=== PATIENT | male | born 1960 | race Caucasian/White ===

== ENCOUNTER 2016-08-12 15:16 | Emergency (ER) | payer BC ==
[~2016-08-12] VITALS: Ht 190.5 cm; Wt 111.1 kg
--- NOTE | 2016-08-12 15:37 | ED Lower Extremity ---
General Stated Complaint: LEFT FOOT INJURY Source: patient Exam Limitations: no limitations History of Present Illness Time seen by provider: 15:36 Initial Comments To ER with left foot pain after an injury. [place] piece of heavy equipment from a grain elevator struck his foot. He was wearing rubber boots at the time. Onset: just prior to arrival Severity: moderate Method of Injury: direct blow Modifying Factors: Worse With Movement Allergies and Home Medications Allergies Coded Allergies: No Known Drug Allergies (Unverified , 08/12/16) Home Medications Lisinopril 10 Mg Tablet Unknown Dose PO DAILY (Reported) Nebivolol HCl 10 Mg Tab Unknown Dose PO DAILY (Reported) Constitutional: see HPI EENTM: see HPI Respiratory: no symptoms reported Cardiovascular: no symptoms reported Genitourinary: no symptoms reported Musculoskeletal: see HPI Skin: no symptoms reported Psychiatric/Neurological: No Symptoms Reported Past Mdelghc-Yreprd-Lcgedi Hx Patient Social History Recent Foreign Travel: No Contact w/Someone Who Travel: No Physical Exam Vital Signs Vital Sign - Last 12Hours 08/12/16 15:30 Temp 97.9 Pulse 67 Resp 18 B/P 164/108 Pulse Ox 95 Capillary Refill : General Appearance: WD/WN no apparent distress HEENT: PERRL/EOMI normal ENT inspection Neck: non-tender full range of motion Respiratory: no respiratory distress no accessory muscle use Hips: bilateral hip non-tender, bilateral hip normal inspection, bilateral hip normal range of motion Legs: bilateral leg non-tender, bilateral leg normal inspection, bilateral leg normal range of motion Knees: bilateral knee non-tender, bilateral knee normal inspection, bilateral knee normal range of motion Ankles: left ankle soft tissue tenderness, left ankle swelling Feet: left foot ecchymosis, left foot pain, left foot soft tissue tenderness, left foot swelling, left foot other (dorsalis pedis pulse is +2 and the capillary refill is less than 3 seconds) Neurologic/Psychiatric: alert normal mood/affect oriented x 3 Skin: normal color warm/dry Progress/Results/Core Measures Results/Orders My Orders Orders-CHRIS GOLDEN APRN Hydrocodone/Apap 5/325 Tablet (Lortab 5 (08/12/16 15:45) Foot, Left, 3 Views (08/12/16 15:35) Ankle, Left, 3 Views (08/12/16 15:35) Medications Given in ED Current Medications Medications Dose Ordered Sig/Taylor Route Start Time Stop Time Status Last Admin Dose Admin Acetaminophen/ Hydrocodone Bitart 1 tab ONCE ONCE PO 08/12/16 15:45 08/12/16 15:46 DC 08/12/16 15:50 1 TAB Vital Signs/I&O Vital Sign - Last 12Hours 08/12/16 15:30 Temp 97.9 Pulse 67 Resp 18 B/P 164/108 Pulse Ox 95 Departure Communication Progress Notes Discussed case with Dr. Arzate. Patient will be placed in a posterior short leg splint using 4 inch Ortho-Glass and follow-up next week. There are no open wounds to qualify this as an open fracture Impression Impression: Primary Impression: Foot fracture, left Qualified Code: S92.902A - Unspecified fracture of left foot, initial encounter for closed fracture Disposition: HOME, SELF-CARE Condition: Stable Departure-Patient Inst. Decision time for Depature: 16:28 Referrals: GREG ARZATE MD, WILLIAM J DO (PCP/Family) Primary Care Physician Patient Instructions: Foot Drop, Foot Fracture (DC) Add. Discharge Instructions: 1. Return to ER for any concerns 2. Call Dr. Arzate's office tomorrow morning or an orthopedist of your choosing to make an appointment for follow-up preferably towards the middle or end of next week 3. Leave the splint on at all times until you're seen by orthopedics 4. Pain medication as directed 5. Keep this foot elevated as much as possible for the initial 48-72 hours Scripts Hydrocodone/Acetaminophen (Hooper 5-325 Tablet)1 Each Tablet1 Each PO Q4H PRN PAIN #30 TAB Prov:CHRIS GOLDEN POT HOLDER BINDER 08/12/16 CHRIS GOLDEN POT HOLDER BINDER Aug 12, 2016 15:37
[2016-08-12] MEDS ORDERED: HYDROcodone/APAP 5 MG/325 MG (LORTAB) TAB PO ONE (15:45)
[2016-08-12] MEDS ORDERED: NFNEB10T PO (15:58)
[2016-08-12] MEDS ORDERED: LISI10TA2 PO (15:58)
--- NOTE | 2016-08-12 16:25 | Diagnostic Imaging Report ---
INDICATION: Injury to left foot. EXAMINATION: AP, oblique and lateral views of the left foot were obtained. FINDINGS: There are acute fractures of the distal aspects of the second, third and fourth metatarsals, with lateral displacement of the distal fragment relative to the proximal fragments. There appears to be a partial subluxation of the fifth MTP joint. IMPRESSION: Acute fractures of the second, third and fourth metatarsals, distally, with lateral displacement of the distal fragments. There appears to be partial subluxation of the fifth MTP joint. Dictated by: Dictated on workstation # [id number]
--- NOTE | 2016-08-12 16:28 | Diagnostic Imaging Report ---
INDICATION: Pain status post injury. Bruising. COMPARISON: None. FINDINGS: Three views of the left ankle were obtained. There is no acute fracture or dislocation. No focal osseous lesions are seen. The surrounding soft tissue structures are unremarkable. There are no radiopaque foreign bodies. IMPRESSION: 1. No acute fracture or dislocation in the left ankle. Dictated by: Dictated on workstation # [id number]
[2016-08-12] MEDS ORDERED: HYDR-757 PO (16:30)
[2016-08-12 16:45] VITALS: BP 156/108
== END 2016-08-12 16:45 | disposition home or self-care (01) ==
LOC: EDUNIT# 15:16 → ER 15:17
DX: S92.332A Displaced fracture of third metatarsal bone, left foot, initial encounter for closed fracture (principal); S92.342A Displaced fracture of fourth metatarsal bone, left foot, initial encounter for closed fracture; S92.322A Displaced fracture of second metatarsal bone, left foot, initial encounter for closed fracture; W30.9XXA Contact with unspecified agricultural machinery, initial encounter; Y92.79 Other farm location as the place of occurrence of the external cause; Y99.8 Other external cause status
CPT/HCPCS: 28475; 29515; 73610; 73630

== ENCOUNTER → 2016-10-11 | Outpatient (CLI) | payer BC ==
[~2016-10-11] MED LIST: HYDR-757 PO; LISI10TA2 PO; NFNEB10T PO
--- NOTE | 2016-10-11 13:53 | Diagnostic Imaging Report ---
INDICATION: Injury to left orbital region. EXAMINATION: Five views of the orbits are obtained. FINDINGS: No fracture or acute bony abnormality is seen. The paranasal sinuses are well aerated. There is no radiopaque foreign body. IMPRESSION: Negative orbits. Dictated by: Dictated on workstation # [id number]
== END ==
LOC: RAD 10:01
PROVIDERS: ATTEND Nurse Practitioner Family
DX: S05.92XA Unspecified injury of left eye and orbit, initial encounter (principal); X58.XXXA Exposure to other specified factors, initial encounter; Y92.019 Unspecified place in single-family (private) house as the place of occurrence of the external cause; Y99.8 Other external cause status
CPT/HCPCS: 70200

== ENCOUNTER → 2017-08-17 | Outpatient (CLI) | payer BC ==
--- NOTE | 2017-08-17 10:25 | Diagnostic Imaging Report ---
INDICATION: Hypertension. TECHNIQUE: Multiple Real-time grayscale images were obtained over the abdomen in various projections. FINDINGS: The right kidney measures 10.1 x 6.1 x 6.9 cm and the left kidney measures 10.8 x 6.6 x 6.4 cm. No calculus or hydronephrosis is detected. Renal Doppler was performed. The proximal renal arteries are obscured by bowel gas. The mid and distal renal arteries demonstrate normal velocity. The renal artery to aorta ratios are normal. The Duplex waveforms are unremarkable. IMPRESSION: No Doppler evidence of renal artery stenosis. Dictated by: Dictated on workstation # [id number]
== END ==
LOC: RAD 09:13
PROVIDERS: ATTEND Nurse Practitioner Family
DX: I10 Essential (primary) hypertension (principal)
CPT/HCPCS: 93975

== ENCOUNTER → 2018-08-16 | Outpatient (CLI) | payer BC ==
[~2018-08-16] MED LIST changes: +APIX5TAB PO; +ASPI-586 PO; +ASPI-999 PO; +HYDR-4226 PO; -HYDR-757 PO; +LISI40TA PO; +METF-478 PO; +METF500T8; +NEBI20TA2 PO; +OMEG-82 PO; +RT-ALBUTEROL SULF 2.5 MG/3 ML PRE-MIX VIAL INH ONE; +RT-ALBUTEROL SULF 2.5 MG/3 ML PRE-MIX VIAL ONE; +UBID100C44 PO; +ZOLP5TAB7 PO
== END ==
LOC: RT 11:29
PROVIDERS: ATTEND Nurse Practitioner Family
DX: J45.909 Unspecified asthma, uncomplicated (principal); G47.33 Obstructive sleep apnea (adult) (pediatric); I48.91 Unspecified atrial fibrillation; E66.9 Obesity, unspecified; Z78.9 Other specified health status
CPT/HCPCS: 94060; 94726; 94729

== ENCOUNTER 2018-08-19 20:33 | Outpatient (CLI) | payer BC ==
[~2018-08-19 20:33] MED LIST changes: -RT-ALBUTEROL SULF 2.5 MG/3 ML PRE-MIX VIAL INH ONE; -RT-ALBUTEROL SULF 2.5 MG/3 ML PRE-MIX VIAL ONE
== END 2018-08-20 04:19 | disposition home or self-care (01) ==
LOC: SLEEP 20:33
PROVIDERS: ATTEND Nurse Practitioner Family
DX: G47.33 Obstructive sleep apnea (adult) (pediatric) (principal); G47.61 Periodic limb movement disorder; R09.02 Hypoxemia; G47.10 Hypersomnia, unspecified; E66.9 Obesity, unspecified; G47.50 Parasomnia, unspecified; J45.909 Unspecified asthma, uncomplicated; I48.91 Unspecified atrial fibrillation
CPT/HCPCS: 95811

== ENCOUNTER → 2018-09-01 | Outpatient (CLI) | payer BC ==
[~2018-09-01] MED LIST changes: +RECEIVED CONTRAST (Hold Metformin) IV SCH
[2018-09-01 13:12] LABS: BUN/CREATININE RATIO 14; CREATININE SERUM 1.16 MG/DL (0.60-1.30); GFR ESTIMATED > 60
[2018-09-01] MEDS: IOHEXOL 350 MG/ML 100 ML (OMNIPAQUE 350) VIAL IV ONE (13:26)
[2018-09-01] MEDS: NS 100 ML (IVPB) BAG IV ONE (13:26)
--- NOTE | 2018-09-01 13:56 | Diagnostic Imaging Report ---
PROCEDURE: CT chest with contrast only. TECHNIQUE: Multiple contiguous axial images were obtained through the chest after administration of intravenous contrast. INDICATION: Atrial fibrillation. COMPARISON: No prior CT chest studies are available for comparison. FINDINGS: No axillary lymphadenopathy is detected. No definite mediastinal or hilar lymphadenopathy is seen. Ascending thoracic aorta is prominent measuring 4.6 cm in AP diameter. No dissection is identified. No pericardial or pleural fluid is identified. Central airways are patent. The lungs are clear. No infiltrates are seen. No nodule or mass is detected. The upper abdomen does show generalized low density throughout the liver consistent with hepatic steatosis. IMPRESSION: 1. Mild aneurysmal dilatation of the ascending thoracic aorta. No dissection is seen. 2. Otherwise unremarkable CT of the chest. 3. Hepatic steatosis. Dictated by: Dictated on workstation # [id number]
== END ==
LOC: RAD 12:48
PROVIDERS: ATTEND Nurse Practitioner Family
DX: I48.91 Unspecified atrial fibrillation (principal); J45.909 Unspecified asthma, uncomplicated; E66.9 Obesity, unspecified; G47.50 Parasomnia, unspecified; G47.10 Hypersomnia, unspecified; G47.33 Obstructive sleep apnea (adult) (pediatric); K76.0 Fatty (change of) liver, not elsewhere classified; I77.810 Thoracic aortic ectasia; Z78.9 Other specified health status
CPT/HCPCS: 36415; 71260; 82565; 84520

== ENCOUNTER → 2018-09-06 | Outpatient (CLI) | payer BC ==
[~2018-09-06] VITALS: Ht 190.5 cm; Wt 115.7 kg
[~2018-09-06] MED LIST changes: +CATHETER FLUSH 10 ML SYR IV PRN; -RECEIVED CONTRAST (Hold Metformin) IV SCH
[2018-09-06 13:55] VITALS: BP 242/104
--- NOTE | 2018-09-06 17:55 | STRESS TEST ---
DATE OF SERVICE: 09/06/2018 EXERCISE MYOVIEW STRESS TEST REPORT Baseline heart rate is 72. Baseline blood pressure is 165/103. Baseline EKG is sinus rhythm with no ischemic changes. In summary, the patient was injected with 10.09 mCi of technetium-99 Myoview and the resting images were obtained. Then, the patient started exercising with the baseline heart rate, blood pressure and EKG mentioned above. The patient was able to exercise for a total of 10 minutes 30 seconds on standard Ousmane protocol. With peak exercise level, EKG was showing minimal nondiagnostic changes. During recovery, heart rate and blood pressure returned to baseline. EKG returned to baseline. The resting and stress images were reviewed and compared in the short axis, horizontal long axis, and vertical long axis views. Review of the images showed diaphragmatic attenuation with typical male pattern with no significant ischemia or infarction. SSS is 2, SDS is 0. TID value is 0.96. On the gated images, the left ventricle appeared to be normal size with normal contractility. Calculated ejection fraction is 56%. CONCLUSION: 1. The patient was able to exercise for 10 minutes 30 seconds on standard Ousmane protocol, a total of 12.1 METs achieving 89% of maximum expected heart rate. 2. Severe hypertensive response to exercise with peak blood pressure 242/104, returned to baseline during recovery. 3. Minimal nondiagnostic EKG changes with exercise, returned to baseline during recovery. 4. Diaphragmatic attenuation with typical male pattern with no significant ischemia or infarction on SPECT images. 5. Normal left ventricular size with normal contractility. Calculated ejection fraction is 56%. Job ID: [id number] DocumentID: [id number] Dictated Date: 09/06/2018 15:33:17 Leather Cartridge Belt Maker Date: 09/06/2018 17:54:18 Dictated By: EDINSON ARCHIBALD MD
== END ==
LOC: CARD 12:07
PROVIDERS: ATTEND Internal Medicine Cardiovascular Disease
DX: I25.10 Atherosclerotic heart disease of native coronary artery without angina pectoris (principal); E78.00 Pure hypercholesterolemia, unspecified; I10 Essential (primary) hypertension; G47.33 Obstructive sleep apnea (adult) (pediatric); G47.10 Hypersomnia, unspecified; E66.9 Obesity, unspecified; Z68.31 Body mass index [BMI] 31.0-31.9, adult
CPT/HCPCS: 78452; 93017

== ENCOUNTER → 2018-09-25 | Outpatient (CLI) | payer BC ==
[~2018-09-25] MED LIST changes: -CATHETER FLUSH 10 ML SYR IV PRN
== END ==
LOC: CARD 12:19
PROVIDERS: ATTEND Internal Medicine Cardiovascular Disease
DX: I48.91 Unspecified atrial fibrillation (principal); E78.00 Pure hypercholesterolemia, unspecified; I10 Essential (primary) hypertension; G47.33 Obstructive sleep apnea (adult) (pediatric); E66.9 Obesity, unspecified; Z68.31 Body mass index [BMI] 31.0-31.9, adult
CPT/HCPCS: 93225; 93226

== ENCOUNTER → 2019-06-26 | Outpatient (CLI) | payer BC ==
[~2019-06-26] MED LIST changes: +CATHETER FLUSH 10 ML SYR IV PRN; +HOLD METFORMIN - RECEIVED CONTRAST 20 ML VIAL IV SCH; +IOHEXOL 350 MG/ML 100 ML (OMNIPAQUE 350) VIAL IV ONE; +NS 100 ML (IVPB) BAG IV ONE
[2019-06-26 09:52] LABS: ALANINE AMINOTRANSFERASE 52 U/L (0-55); ALBUMIN 4.4 GM/DL (3.2-4.5); ALKALINE PHOSPHATASE 61 U/L (40-136); BILIRUBIN,TOTAL 0.7 MG/DL (0.1-1.0); BUN/CREATININE RATIO 16; CALCIUM 9.2 MG/DL (8.5-10.1); CARBON DIOXIDE 26 MMOL/L (21-32); CHLORIDE 103 MMOL/L (98-107); CHOLESTEROL 224 MG/DL (< 200); CREATININE SERUM 1.03 MG/DL (0.60-1.30); GFR ESTIMATED > 60; GLUCOSE 110 MG/DL (70-105); HDL CHOLESTEROL 43 MG/DL (40-60); POTASSIUM 4.2 MMOL/L (3.6-5.0); SODIUM 141 MMOL/L (135-145); TOTAL PROTEIN 7.1 GM/DL (6.4-8.2); TRIGLYCERIDES 120 MG/DL (<150); VLDL CHOLESTEROL 24 MG/DL (5-40)
--- NOTE | 2019-06-26 10:35 | Diagnostic Imaging Report ---
EXAMINATION: CT angiography of the chest. TECHNIQUE: Contrast enhanced thin section helical images were obtained through the chest with intravenous contrast timed for the optimal opacification of the arterial structures per CTA protocol. Post-processing, reconstructions and interpretation of angiographic images of the vessels was performed. 3D MIP reconstructions were performed and reviewed. All CT scans use one or more of the following dose optimizing techniques: automated exposure control, MA and/or KvP adjustment based on a patient size and exam type, or iterative reconstruction. HISTORY: Atrial fibrillation COMPARISON: 09/01/2018 FINDINGS: No pulmonary embolism is seen. Pulmonary artery is normal in caliber. There is an unchanged 4.2 cm ascending aortic aneurysm. Aortic valve is trileaflet in configuration. The lungs are clear without edema or pneumonia. No pleural effusion or pneumothorax. No suspicious nodules. Heart size is normal. No pericardial effusion. There is no axillary or supraclavicular lymphadenopathy. There is no mediastinal lymphadenopathy. Limited views of the upper abdomen are unremarkable. There are no suspicious osseous lesions. IMPRESSION: 1. No pulmonary embolism. 2. Unchanged 4.2 cm ascending aortic aneurysm. Dictated by: Dictated on workstation # [id number]
== END ==
LOC: RAD 08:56
PROVIDERS: ATTEND Internal Medicine Cardiovascular Disease
DX: I71.2 Thoracic aortic aneurysm, without rupture (principal); G47.33 Obstructive sleep apnea (adult) (pediatric); E78.2 Mixed hyperlipidemia; I10 Essential (primary) hypertension; I48.91 Unspecified atrial fibrillation
CPT/HCPCS: 36415; 71275; 80053; 80061

== ENCOUNTER → 2021-01-28 | Outpatient (CLI) | payer BC ==
[~2021-01-28] MED LIST changes: -CATHETER FLUSH 10 ML SYR IV PRN; -HOLD METFORMIN - RECEIVED CONTRAST 20 ML VIAL IV SCH; -IOHEXOL 350 MG/ML 100 ML (OMNIPAQUE 350) VIAL IV ONE; -LISI10TA2 PO; +LISI10TA25 PO; -LISI40TA PO; +LISI40TA9 PO; +METF-865; -METF500T8; -NS 100 ML (IVPB) BAG IV ONE
--- NOTE | 2021-01-28 16:47 | Diagnostic Imaging Report ---
INDICATION: Neck pain after trauma 2 years ago Cervical spine AP, lateral and oblique views of the cervical spine are obtained. Vertebral body alignment is normal. There are no compression fractures seen. There are degenerative disc changes with disc space narrowing at C3-C4, C4-C5, C5-C6 and C6-C7. There is spondylosis with osteophytes forming at those levels. There are also degenerative changes of the uncovertebral joints at C2-C3, C3-C4 and C4-C5. Posterior elements are in good alignment with no evidence of fracture. Odontoid is intact. Atlantoaxial relationship appears normal. IMPRESSION: Degenerative changes from C3 through C7 and degenerative changes of the uncovertebral joints from C2 through C5. No acute abnormality seen. Dictated by: Dictated on workstation # [id number]
== END ==
LOC: RAD 15:29
PROVIDERS: ATTEND Internal Medicine
DX: M47.812 Spondylosis without myelopathy or radiculopathy, cervical region (principal); M99.01 Segmental and somatic dysfunction of cervical region
CPT/HCPCS: 72050

== ENCOUNTER → 2021-02-09 | Outpatient (CLI) | payer BC ==
--- NOTE | 2021-02-09 11:04 | Diagnostic Imaging Report ---
INDICATION: Pain. EXAMINATION: Cervical spine MRI on 02/09/2021. FINDINGS: Alignment of the spine is preserved. No subluxations or acute fractures are appreciated. The cervicomedullary junction is maintained. The visualized cord signal is preserved. C2-C3: There is a central spur/disc complex. There is bilateral facet hypertrophy. There is mild central stenosis with neural foramina patent. C3-C4: There is a broad-based right paracentral spur/disc complex with bilateral facet hypertrophy, right worse than left. There is moderate central stenosis with narrowing of the neural foramina, right worse than left. C4-C5: There is a right paracentral spur/disc complex with bilateral facet hypertrophy. There is moderate central stenosis with narrowing of the neural foramina bilaterally. C5-C6: There is intervertebral disc space narrowing, disc desiccation, and a broad-based spur/disc complex with bilateral facet hypertrophy. There is moderate central stenosis with narrowing of the neural foramina. C6-C7: There is intervertebral disc space narrowing, disc desiccation, and a left paracentral spur/disc complex. There is bilateral facet hypertrophy. There is mild to moderate central narrowing. There is narrowing of the left neural foramen. C7-T1: There is a central disc protrusion with secondary mild central narrowing. There is mild left neuroforaminal narrowing. T1 and T2 demonstrate bilateral facet hypertrophy with a mild broad-based spur/disc complex and secondary mild central stenosis. No significant neuroforaminal narrowing is appreciated. The visualized prevertebral soft tissues appear unremarkable. IMPRESSION: Multilevel diffuse degenerative findings as described above with areas of moderate central stenosis but no evidence for cord compression. Dictated by: Dictated on workstation # [id number]
== END ==
LOC: RAD 09:30
PROVIDERS: ATTEND Internal Medicine
DX: M50.23 Other cervical disc displacement, cervicothoracic region (principal); M50.323 Other cervical disc degeneration at C6-C7 level; M48.02 Spinal stenosis, cervical region; M48.03 Spinal stenosis, cervicothoracic region; M89.38 Hypertrophy of bone, other site
CPT/HCPCS: 72141

== ENCOUNTER → 2021-09-11 | Outpatient (CLI) | payer BC ==
--- NOTE | 2021-09-11 13:48 | Diagnostic Imaging Report ---
INDICATION: Dyspnea. COMPARISON: Comparison with CT chest on 06/26/2019. FINDINGS: PA and lateral views. Lungs are well aerated and clear. The heart is not enlarged. No pulmonary edema or hilar adenopathy. No pneumothorax or pleural effusion. No bony abnormalities. IMPRESSION: Normal PA and lateral chest. Dictated by: Dictated on workstation # [id number]
== END ==
LOC: RAD 12:56
PROVIDERS: ATTEND Internal Medicine
DX: U07.1 COVID-19 (principal); J12.82 Pneumonia due to coronavirus disease 2019; H93.13 Tinnitus, bilateral
CPT/HCPCS: 71046

== ENCOUNTER → 2022-02-15 | Outpatient (CLI) | payer BC ==
[~2022-02-15] MED LIST changes: +CATHETER FLUSH 10 ML SYR IV PRN; +HOLD METFORMIN - RECEIVED CONTRAST 20 ML VIAL IV SCH; +IOHEXOL 350 MG/ML 100 ML (OMNIPAQUE 350) VIAL IV ONE; +NS 100 ML (IVPB) BAG IV ONE
[2022-02-15 10:53] LABS: ALBUMIN 4.2 GM/DL (3.2-4.5); BILIRUBIN,TOTAL 0.5 MG/DL (0.1-1.0); CALCIUM 9.1 MG/DL (8.5-10.1); CREATININE SERUM 0.96 MG/DL (0.60-1.30); POTASSIUM 4.2 MMOL/L (3.6-5.0)
--- NOTE | 2022-02-15 13:33 | Diagnostic Imaging Report ---
PROCEDURE: CT angiography of the chest with contrast. TECHNIQUE: Multiple contiguous axial images were obtained through the chest after uneventful bolus administration of intravenous contrast. 3D reconstructed CTA MIP acquisitions were also performed. Auto Exposure Controls were utilized during the CT exam to meet ALARA standards for radiation dose reduction. INDICATION: Thoracic aneurysm. FINDINGS: The ascending thoracic aorta measures approximately 4.2 cm. The descending thoracic aorta is 3.3 cm. No evidence of aortic dissection. No significant atherosclerotic changes are seen. The lungs are well aerated. No infiltrates or masses demonstrated. No pleural effusion or pericardial effusion. No pneumothorax. No bony lesions. IMPRESSION: Ascending thoracic aortic aneurysm measuring 4.2 cm. No evidence of aortic dissection. Dictated by: Dictated on workstation # [id number]
== END ==
LOC: RAD 09:59
PROVIDERS: ATTEND Physician Assistant
DX: I71.2 Thoracic aortic aneurysm, without rupture (principal)
CPT/HCPCS: 36415; 71275; 80053; 80061

== ENCOUNTER 2023-03-30 06:24 | Emergency (ER) | payer BC ==
[~2023-03-30] VITALS: Ht 190.5 cm; Wt 113.4 kg
[~2023-03-30 06:24] MED LIST changes: -CATHETER FLUSH 10 ML SYR IV PRN; -HOLD METFORMIN - RECEIVED CONTRAST 20 ML VIAL IV SCH; -IOHEXOL 350 MG/ML 100 ML (OMNIPAQUE 350) VIAL IV ONE; -NS 100 ML (IVPB) BAG IV ONE
[2023-03-30] MEDS ORDERED: ZOLP6.2538 (06:36)
[2023-03-30] MEDS ORDERED: PRD20T (06:36)
[2023-03-30] MEDS ORDERED: sulfamethoxazole (06:36)
[2023-03-30] MEDS ORDERED: AMLO-251 (06:36)
[2023-03-30] MEDS ORDERED: PIPERACILLIN/Tazobactam 4.5 GM in NS (IVPB) 100 ML 100 ML IV ONE (06:45)
[2023-03-30 07:02] LABS: BASOPHILS % (AUTO) 0 % (0-10); EOSINOPHILS # (AUTO) 0.1 10^3/uL (0.0-0.3); EOSINOPHILS % (AUTO) 1 % (0-10); HEMATOCRIT 44 % (40-54); HEMOGLOBIN 14.9 g/dL (13.3-17.7); LYMPHOCYTES # (AUTO) 1.1 10^3/uL (1.0-4.0); LYMPHOCYTES % (AUTO) 12 % (12-44); MEAN CORPUSCULAR HEMOGLOBIN 32 pg (25-34); MEAN CORPUSCULAR HGB CONC 34 g/dL (32-36); MEAN CORPUSCULAR VOLUME 94 fL (80-99); MEAN PLATELET VOLUME 9.9 fL (9.0-12.2); MONOCYTES # (AUTO) 0.8 10^3/uL (0.0-1.0); MONOCYTES % (AUTO) 8 % (0-12); NEUTROPHILS # (AUTO) 7.8 10^3/uL (1.8-7.8); NEUTROPHILS % (AUTO) 79 % (42-75); PLATELET COUNT 190 10^3/uL (130-400); WHITE BLOOD COUNT 9.9 10^3/uL (4.3-11.0)
[2023-03-30] MEDS: VANCOMYCIN INJECTION 1,000 MG in NS (IVPB) 250 ML 250 ML IV SCH ×2 (07:06→08:16)
--- NOTE | 2023-03-30 07:12 | ED General ---
General Chief Complaint: Skin/Wound Problems Stated Complaint: RIGHT HAND PAIN/SWELLING Nursing Triage Note: RIGHT HAND INFECTION/SWELLING/PAIN SINCE 03/23/23 SEEN AT URGENTCARE 03/25/23 STARTED ON ABX/STEROIDS. Source of Information: Patient Exam Limitations: No Limitations History of Present Illness Date Seen by Provider: Mar 30, 2023 Time Seen by Provider: 06:33 Initial Comments This 62-year-old gentleman presents to the emergency room with significant swelling, pain, erythema, and decreased range of motion in the right hand and wrist. Symptoms started approximately March 23 with some pain in the wrist. Pain and swelling rapidly progressed throughout his hand and seem to be focused over the dorsal aspect of the right fourth MCP joint. He was seen at [facility] urgent care on March 25 and started on Bactrim and prednisone. He has continued on these medications. He was seen again at [facility] urgent care yesterday, March 29. Incision and drainage was performed over the right fourth MCP joint area. Patient reports 1.5 mL of purulent drainage was expressed from the incision. Symptoms have progressively worsened since then. He now has erythema, swelling, and pain extending up to the mid forearm with significant decrease in range of motion. He is aseptic in appearance with normal temperature and heart rate. Patient is noted to be on metformin but denies history of diabetes. He is anticoagulated on Eliquis for history of paroxysmal atrial fibrillation. He has had 2 episodes of atrial fibrillation in the past. He has not taken any Eliquis this morning. He took Percocet last night for the pain. Patient denies any traumatic injury as a trigger for his symptoms. He does recall pulling a calf the day before symptoms started using his right hand. He also notes he often has chapped and cracked knuckles. He is right-handed. Allergies and Home Medications Allergies Coded Allergies: No Known Drug Allergies (Unverified , 08/12/16) Patient Home Medication List Home Medication List Reviewed: Yes Amlodipine Besylate (Amlodipine Besylate) 10 Mg Tablet, (Reported) Entered as Reported by: MANUEL MILLER on 03/30/23 0636 Last Action: New Order Apixaban (Eliquis) 5 Mg Tablet, 5 MG PO BID Prescribed by: EDINSON ARCHIBALD on 07/15/18 1648 Lisinopril (Lisinopril) 40 Mg Tablet, 40 MG PO DAILY, (Reported) Entered as Reported by: KENNY QUINN on 07/15/18 1034 Metformin HCl (Metformin HCl ER) 500 Mg Tab.er.24, 500 MG PO HS, (Reported) Entered as Reported by: KENNY QUINN on 07/15/18 1034 Nebivolol HCl (Bystolic) 20 Mg Tablet, 20 MG PO DAILY, (Reported) Entered as Reported by: KENNY QUINN on 07/15/18 1035 [place]-3S/Dha/Epa/Fish Oil/D3 (Fish Oil + D3 Softgel) 1 Each Capsule, 1 EACH PO DAILY, (Reported) Entered as Reported by: KENNY QUINN on 07/15/18 1035 Prednisone (Prednisone) 20 Mg Tab, (Reported) Entered as Reported by: MANUEL MILLER on 03/30/23635 Last Action: New Order Ubidecarenone (Co Q-10) 100 Mg Capsule, 100 MG PO DAILY, (Reported) Entered as Reported by: KENNY QUINN on 07/15/18 1035 Zolpidem Tartrate (Zolpidem Tartrate) 5 Mg Tablet, 5 MG PO HS, (Reported) Entered as Reported by: KENNY QUINN on 07/15/18 1034 Zolpidem Tartrate (Zolpidem Tartrate ER) 6.25 Mg Tab.mphase, (Reported) Entered as Reported by: MANUEL MILLER on 03/30/23635 Last Action: New Order [sulfamethoxazole] , (Reported) Entered as Reported by: MANUEL MILLER on 03/30/23635 Last Action: New Order Review of Systems Review of Systems Constitutional: no symptoms reported EENTM: no symptoms reported Respiratory: no symptoms reported Cardiovascular: no symptoms reported Gastrointestinal: no symptoms reported Genitourinary: no symptoms reported Musculoskeletal: see HPI Skin: see HPI Psychiatric/Neurological: No Symptoms Reported Hematologic/Lymphatic: No Symptoms Reported Immunological/Allergic: no symptoms reported Past Sxsfvuu-Gibbep-Vrfaer Hx Patient Social History Tobacco Use?: No Substance use?: No Alcohol Use?: Yes Alcohol Frequency: Once in a while Pt feels they are or have been: No Immunizations Up To Date Tetanus Booster (TDap): More than 5yrs Seasonal Allergies Seasonal Allergies: No Past Medical History Surgery/Hospitalization HX: RIGHT FOOT FX, HTN, HLD, AFIB Surgeries: No Respiratory: Yes (DOES NOT USE HIS C PAP MACHINE) Sleep Apnea Cardiac: Yes Atrial Fibrillation (Paroxysmal), High Cholesterol, Hypertension Neurological: No Reproductive Disorders: No Gastrointestinal: No Musculoskeletal: No Endocrine: No (Uses metformin but denies diabetes) HEENT: No Cancer: No Psychosocial: No Integumentary: No Physical Exam Vital Signs Vital Signs - First Documented 03/30/23 06:28 Temp 37.3 Pulse 63 Resp 14 B/P (MAP) 139/82 (101) Pulse Ox 94 O2 Delivery Room Air Capillary Refill : Less Than 3 Seconds Height, Weight, BMI Height: 6'3.00" Weight: 255lbs. 0.0oz. 115.943782yt; 31.00 BMI Method:Stated General Appearance: No Apparent Distress, WD/WN HEENT: PERRL/EOMI, Normal ENT Inspection Neck: Normal Inspection Respiratory: Lungs Clear, Normal Breath Sounds Cardiovascular: Regular Rate, Rhythm, No Edema, No Murmur Extremity: Other (Left upper extremity normal. Right upper extremity markedly edematous from the fingers through the mid forearm with erythema and warmth noted. Radial pulse, distal sensation, and capillary refill intact. Range of motion markedly decreased by pain and stiffness. There is significant pain with passive and active flexion and extension, especially in the fourth digit.) Neurologic/Psychiatric: Alert, Oriented x3, No Motor/Sensory Deficits, Normal Mood/Affect, claims manager II-XII Norm as Tested Skin: Normal Color, Warm/Dry, Erythema (Right mid forearm and through fingers) Focused Exam Lactate Level 03/30/23 06:38: Lactic Acid Level 1.84 Lactic Acid Level Laboratory Tests Test 03/30/23 06:38 Lactic Acid Level 1.84 MMOL/L (0.50-2.00) Progress/Results/Core Measures Suspected Sepsis SIRS Temperature: Pulse: 63 Respiratory Rate: 14 Laboratory Tests 03/30/23 06:38: White Blood Count 9.9 Blood Pressure 139 /82 Mean: 101 03/30/23 06:38: Lactic Acid Level 1.84 Laboratory Tests 03/30/23 06:38: Creatinine 1.06, INR Comment 1.0, Platelet Count 190, Total Bilirubin 0.9 Results/Orders Lab Results Laboratory Tests Test 03/30/23 06:38 Range/Units White Blood Count 9.9 4.3-11.0 10^3/uL Red Blood Count 4.69 4.30-5.52 10^6/uL Hemoglobin 14.9 13.3-17.7 g/dL Hematocrit 44 40-54 % Mean Corpuscular Volume 94 80-99 fL Mean Corpuscular Hemoglobin 32 25-34 pg Mean Corpuscular Hemoglobin Concent 34 32-36 g/dL Red Cell Distribution Width 13.2 10.0-14.5 % Platelet Count 190 130-400 10^3/uL Mean Platelet Volume 9.9 9.0-12.2 fL Immature Granulocyte % (Auto) 0 % Neutrophils (%) (Auto) 79 H 42-75 % Lymphocytes (%) (Auto) 12 12-44 % Monocytes (%) (Auto) 8 0-12 % Eosinophils (%) (Auto) 1 0-10 % Basophils (%) (Auto) 0 0-10 % Neutrophils # (Auto) 7.8 1.8-7.8 10^3/uL Lymphocytes # (Auto) 1.1 1.0-4.0 10^3/uL Monocytes # (Auto) 0.8 0.0-1.0 10^3/uL Eosinophils # (Auto) 0.1 0.0-0.3 10^3/uL Basophils # (Auto) 0.0 0.0-0.1 10^3/uL Immature Granulocyte # (Auto) 0.0 0.0-0.1 10^3/uL Prothrombin Time 13.4 12.2-14.7 SEC INR Comment 1.0 0.8-1.4 Activated Partial Thromboplast Time 29 24-35 SEC Sodium Level 137 135-145 MMOL/L Potassium Level 3.7 3.6-5.0 MMOL/L Chloride Level 102 98-107 MMOL/L Carbon Dioxide Level 26 21-32 MMOL/L Anion Gap 9 5-14 MMOL/L Blood Urea Nitrogen 15 7-18 MG/DL Creatinine 1.06 0.60-1.30 MG/DL Estimat Glomerular Filtration Rate 78 BUN/Creatinine Ratio 14 Glucose Level 142 H 70-105 MG/DL Lactic Acid Level 1.84 0.50-2.00 MMOL/L Uric Acid 5.4 2.6-7.2 MG/DL Calcium Level 8.4 L 8.5-10.1 MG/DL Corrected Calcium 8.4 L 8.5-10.1 MG/DL Total Bilirubin 0.9 0.1-1.0 MG/DL Aspartate Amino Transf (AST/SGOT) 22 5-34 U/L Alanine Aminotransferase (ALT/SGPT) 52 0-55 U/L Alkaline Phosphatase 70 40-136 U/L C-Reactive Protein High Sensitivity 1.39 H 0.00-0.50 MG/DL Total Protein 6.4 6.4-8.2 GM/DL Albumin 4.0 3.2-4.5 GM/DL Micro Results Microbiology 03/30/23 Blood Culture - Preliminary, Resulted 03/30/23 Blood Culture - Preliminary, Resulted My Orders Orders - PREETHI SON MD Cbc With Automated Diff (03/30/23 06:40) Comprehensive Metabolic Panel (03/30/23 06:40) Blood Culture (03/30/23 06:40) Protime With Inr (03/30/23 06:40) Partial Thromboplastin Time (03/30/23 06:40) Ed Iv/Invasive Line Start (03/30/23 06:40) Vital Signs Adult Sepsis Patie Q15M (03/30/23 06:40) Remove Rings In Anticipation O (03/30/23 06:40) Lactic Acid Analyzer (03/30/23 06:40) Piperacillin/Tazobactam (Piperacillin/Ta (03/30/23 06:45) Hs C Reactive Protein (03/30/23 06:40) Vancomycin Injection (Vancomycin Injecti (03/30/23 06:45) Uric Acid (03/30/23 06:49) Morphine Injection (Morphine Injection (03/30/23 10:00) Forearm, Right, 2 Views (03/30/23 10:04) Hand, Right, 3 Views (03/30/23 10:04) Lactated Ringers 1,000 Ml (Lactated Ring (03/30/23 10:15) Morphine Injection (Morphine Injection (03/30/23 11:14) Medications Given in ED Vital Signs/I&O 03/30/23 03/30/23 06:28 11:44 Temp 37.3 Pulse 63 54 Resp 14 14 B/P (MAP) 139/82 (101) 143/94 Pulse Ox 94 95 O2 Delivery Room Air Room Air Capillary Refill : Less Than 3 Seconds Blood Pressure Mean: 101 Progress Note #1: Time: 07:14 Progress Note This patient appears to have significant infection of the right upper extremity. Labs are being obtained along with blood culture x2. I anticipate consulting a hand surgeon after lab results are available. He is tolerating the pain at this time. I am avoiding using opioids at this time as he may need to drive himself to a hand surgeon or a tertiary care facility as there is no EMS transport service available in [facility] today. I am also avoiding NSAIDs due to his Eliquis use. Treatment with Zosyn and vancomycin is being provided after blood cultures. Progress Note #2: Time: 08:10 Progress Note Labs have been reviewed and interpreted by me. CBC is unremarkable. CMP is relatively unremarkable. Glucose was mildly elevated at 142. CRP was mildly elevated at 1.39. Lactic acid was normal. I discussed to the urgent care encounter with a nurse who was familiar with the case. She reviewed notes. Labs drawn yesterday are not yet available. She confirmed that incision and drainage was performed with collection of culture. The drainage expressed was mostly bloody but there was about 1 mL of purulent yellow drainage expressed. Culture is in process. She reported prednisone was prescribed initially on the first day of presentation March 25 as infection was not readily evident at that time. There was pain and swelling without obvious infection. Progress Note #3: Time: 10:06 Progress Note Patient is receiving morphine for pain. I have checked with the [facility]. [facility] is on diversion for admissions and therefore did not have consultation available for hand or plastic surgery. [facility] did not have hand or plastic surgery consults available in [place]. I have discussed options with the patient. If a long distance transfer is necessary, he prefers to go north, and to if possible. I have contacted the transfer center and they are evaluating his case. They have requested x-rays to be obtained in the meantime. X-rays of been ordered. Patient has received antibiotics. Since we are keeping him n.p.o., I will also order IV fluids. Progress Note #4: Time: 10:59 Progress Note I received an accepting physician at [facility]. Patient is to arrive in the emergency department. Since he is hemodynamically stable, his daughter will drive him there. EMS transfer services are not available through [facility] at this time. Receiving physician is Dr. Parada. I will ask him to remain n.p.o. until he is evaluated. X-ray reports of the hand and forearm have been reviewed. There was mention of possible scapholunate ligamentous injury. Chronicity is uncertain. Given patient's report of no recent traumatic injuries, this likely represents a chronic finding. Patient is being prepared for transfer to [facility]. Diagnostic Imaging Diagonstic Imaging: Xray Plain Films/CT/US/NM/MRI: hand Comments NAME: BEL[facility] HODGE [facility] REC#: [id number] PT STATUS: REG ER : 1960 PHYSICIAN: PREETHI SON MD ADMIT DATE: 03/30/23/ER Draft Date of Exam:03/30/23 HAND, RIGHT, 3 VIEWS CLINICAL INDICATION: Patient with hand pain. EXAM: X-ray of the right hand, 3 views. COMPARISONS: None FINDINGS AND IMPRESSION: 1: There is widening of the scapholunate interval up to roughly 4 mm which may be seen with ligament injury. This is of unknown age. 2: Otherwise, there is no acute fracture or dislocation. There is soft tissue swelling about the metacarpal bone regions. 3: There is severe joint space narrowing of the radiocarpal joint region with spurring and sclerosis. There are degenerative spurs involving the 1st MCP joint and 1st CMC joint. Dictated on workstation # [id number] Dict: 03/30/23 1048 Trans: 03/30/23 1053 [facility] [id number] Interpreted by: MARY AVILES MD Diagonstic Imaging: Xray Plain Films/CT/US/NM/MRI: forearm Comments NAME: BELLE HODGE [facility] REC#: [id number] PT STATUS: REG ER : 1960 PHYSICIAN: PREETHI SON MD ADMIT DATE: 03/30/23/ER Draft Date of Exam:03/30/23 FOREARM, RIGHT, 2 VIEWS INDICATION: forearm pain TECHNIQUE: 2 views of the right forearm. CORRELATION STUDY: None FINDINGS: No acute bony abnormality of the right radius and ulna. Limited imaging elbow grossly unremarkable. There is marked joint space narrowing at the radiocarpal row with sclerosis distal radius and the articulating scaphoid. Abnormal widening at the scapholunate interval consistent with ligament injury. Small bone fragment projects over the dorsal aspect of proximal row. IMPRESSION: 1. Negative for acute bony abnormality of the forearm. Rather advanced degenerative changes of the radiocarpal row with the wrist. Findings also positive for ligamentous injury/disruption of the scapholunate interval. Dictated on workstation # [id number] Dict: 03/30/23 1035 Trans: 03/30/[address] [place] [address] [id number] Interpreted by: CHERI NAVA DO Departure Impression Primary Impression: Abscess of right hand Additional Impression: Tenosynovitis of right hand Disposition: XFER SHT-TRM HOSP Condition: Stable Transfer Transfer Reason: Exceeds level of care Time Spoke to Accepting Phy: 10:55 Transfer Progress Notes Patient will be transferred by private vehicle to [facility] emergency room with accepting physician Dr. Parada. Transfer Time: 11:04 Transfer Facility: [facility] Method of Transfer: Private Vehicle Departure-Patient Inst. Referrals: BERNARDO LEE DO (PCP/Family) Primary Care Physician Patient Instructions: Tenosynovitis Add. Discharge Instructions: Present directly to the emergency department at [facility] in [place], [place]. Do not eat or drink anything until you are assessed there. Keep your hand elevated to the level of your heart is much as possible in the meantime. All discharge instructions reviewed with patient and/or family. Voiced understanding. Copy Copies To 1: BERNARDO LEE JOSHUA T MD Mar 30, 2023 07:12
[2023-03-30 07:17] LABS: PROTHROMBIN TIME PATIENT 13.4 SEC (12.2-14.7)
[2023-03-30 07:26] LABS: BILIRUBIN,TOTAL 0.9 MG/DL (0.1-1.0); CALCIUM 8.4 MG/DL (8.5-10.1); CREATININE SERUM 1.06 MG/DL (0.60-1.30); POTASSIUM 3.7 MMOL/L (3.6-5.0); TOTAL PROTEIN 6.4 GM/DL (6.4-8.2); URIC ACID 5.4 MG/DL (2.6-7.2)
[2023-03-30] MEDS ORDERED: morphine INJ 4 MG/ML 1 ML (VIAL/SYRINGE) IVP ONE (10:00)
[2023-03-30] MEDS ORDERED: LACTATED RINGERS 1,000 ML 1,000 ML IV ONE (10:15)
--- NOTE | 2023-03-30 10:38 | Diagnostic Imaging Report ---
INDICATION: forearm pain TECHNIQUE: 2 views of the right forearm. CORRELATION STUDY: None FINDINGS: No acute bony abnormality of the right radius and ulna. Limited imaging elbow grossly unremarkable. There is marked joint space narrowing at the radiocarpal row with sclerosis distal radius and the articulating scaphoid. Abnormal widening at the scapholunate interval consistent with ligament injury. Small bone fragment projects over the dorsal aspect of proximal row. IMPRESSION: 1. Negative for acute bony abnormality of the forearm. Rather advanced degenerative changes of the radiocarpal row with the wrist. Findings also positive for ligamentous injury/disruption of the scapholunate interval. Dictated by: Dictated on workstation # [id number]
--- NOTE | 2023-03-30 10:53 | Diagnostic Imaging Report ---
CLINICAL INDICATION: Patient with hand pain. EXAM: X-ray of the right hand, 3 views. COMPARISONS: None FINDINGS AND IMPRESSION: 1: There is widening of the scapholunate interval up to roughly 4 mm which may be seen with ligament injury. This is of unknown age. 2: Otherwise, there is no acute fracture or dislocation. There is soft tissue swelling about the metacarpal bone regions. 3: There is severe joint space narrowing of the radiocarpal joint region with spurring and sclerosis. There are degenerative spurs involving the 1st MCP joint and 1st CMC joint. Dictated by: Dictated on workstation # [id number]
[2023-03-30] MEDS ORDERED: morphine INJ 10 MG/ML 1ML (SYR OR VIAL) IVP STA (11:14)
[2023-03-30 11:44] VITALS: BP 143/94
== END 2023-03-30 11:43 | disposition short-term general hospital (02) ==
LOC: EDUNIT# 06:24 → ER 06:26
DX: L02.511 Cutaneous abscess of right hand (principal); M65.841 Other synovitis and tenosynovitis, right hand; I48.0 Paroxysmal atrial fibrillation; R73.9 Hyperglycemia, unspecified; R79.82 Elevated C-reactive protein (CRP); Z79.01 Long term (current) use of anticoagulants; Z79.84 Long term (current) use of oral hypoglycemic drugs
CPT/HCPCS: 36415; 73090; 73130; 80053; 83605; 84550; 85025; 85610; 85730; 86141; 87040